=== PATIENT | male | born 1955 | race Caucasian/White ===

== ENCOUNTER 2016-11-16 00:29 | Emergency (ER) | payer BC ==
[~2016-11-16] VITALS: Ht 177.8 cm; Wt 95.0 kg
[~2016-11-16 00:29] MED LIST: CARB1CAP5 PO; CEFU500T PO; CLON-365 PO; DONE10TA7 PO; MIRT15TA4 PO
[2016-11-16 00:40] VITALS: BP 151/100
[2016-11-16] MEDS ORDERED: ONDANSETRON 2MG/ML, 2ML ONE (01:13)
[2016-11-16] MEDS ORDERED: KETOROLAC 30 MG/1 ML ONE (01:13)
[2016-11-16] MEDS ORDERED: HYDROmorphone 1 MG/ML, 1ML ONE (01:13)
== END 2016-11-16 02:19 | disposition home or self-care (01) ==
LOC: ED 01:45
DX: M25.512 Pain in left shoulder (principal); G20 Parkinson's disease
CPT/HCPCS: 99284